=== PATIENT | female | born 1970 | race Caucasian/White ===

== ENCOUNTER 2017-06-24 18:02 | Emergency (ER) | payer MEDICARE ==
[~2017-06-24] VITALS: Ht 170.2 cm; Wt 59.0 kg
[~2017-06-24 18:02] MED LIST: HYDR-317 PO; IBUP-1687 PO; OXYB15TA14 PO; PRED20TA6 PO; SPIR1TAB28 PO; TRAM-420 PO
[2017-06-24 18:07] VITALS: BP 134/85
--- NOTE | 2017-06-24 18:24 | ER Report ---
History and Physical Time Seen By MD: 18:20 Hx. of Stated Complaint: CONSTIPATED FOR 8 DAYS - SENT FROM URGENT CARE. HPI/ROS Per nursing report: Alanis T7-T8 paraplegic since age 17 Rx at [facility] at that time, partial hysterectomy, on bowel regimen, last BM 8d ago, now with some discomfort and seen at xray done today and copious stool seen; xray on disc. No N/V CHIEF COMPLAINT: Constipation, HISTORY OF PRESENT ILLNESS: Constipation, 8 days worsening 2 days ago with mild diffuse abdominal discomfort no vomiting. No fevers no chills completing antibiotics for urinary tract infection and has 1 more day of Bactrim to go last bowel movement 8 days ago was hard stools no suspected fecal impaction normally uses digital stimulation to defecate. No bloody stools. No other concerns or complaints today. REVIEW OF SYSTEMS: Respiratory: No cough, no dyspnea. Cardiovascular: No chest pain, no palpitations. Gastrointestinal: Otherwise negative Musculoskeletal: No back pain. 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 No acute distress Eyes: Pupils equal and round no pallor or injection. ENT, Mouth: Mucous membranes are moist. Respiratory: There are no retractions, lungs are clear to auscultation. Cardiovascular: Regular rate and rhythm. No murmurs gallops or rubs Gastrointestinal: Abdomen is soft and non tender, no masses, bowel sounds normal. Neurological: No acute changes otherwise Normal gross exam Baseline paraplegia Skin: Warm and dry, no rashes. Musculoskeletal: Neck is supple non tender. Extremities are nontender, nonswollen and have full range of motion. No edema DIFFERENTIAL DIAGNOSIS: After history and physical exam differential diagnosis was considered for constipation, obstipation, small bowel obstruction, intussusception, volvulus, doubt aortic dissection or AAA rupture. Medical Decision Making Data Points Result Diagram: 06/24/17190206/24/171902 Laboratory Hematology Test 06/24/17 19:03 06/24/17 19:24 Red Blood Count 4.50 M/uL (4.17-5.56) Mean Corpuscular Volume 90.7 fL (80.0-96.0) Mean Corpuscular Hemoglobin 31.8 pg (26.0-33.0) Mean Corpuscular Hemoglobin Concent 35.0 g/dL (32.0-36.0) Red Cell Distribution Width 12.8 % (11.5-14.5) Mean Platelet Volume 6.7 fL (7.2-11.1) Neutrophils (%) (Auto) 63.1 % (39.4-72.5) Lymphocytes (%) (Auto) 24.8 % (17.6-49.6) Monocytes (%) (Auto) 9.7 % (4.1-12.4) Eosinophils (%) (Auto) 1.7 % (0.4-6.7) Basophils (%) (Auto) 0.7 % (0.3-1.4) Nucleated RBC Relative Count (auto) 0.0 /100WBC Neutrophils # (Auto) 5.0 K/uL (2.0-7.4) Lymphocytes # (Auto) 2.0 K/uL (1.3-3.6) Monocytes # (Auto) 0.8 K/uL (0.3-1.0) Eosinophils # (Auto) 0.1 K/uL (0.0-0.5) Basophils # (Auto) 0.1 K/uL (0.0-0.1) Nucleated RBC Absolute Count (auto) 0.00 K/uL Sodium Level 131 mmol/L (137-145) Potassium Level 3.5 mmol/L (3.5-5.0) Chloride Level 92 mmol/L (98-107) Carbon Dioxide Level 26 mmol/L (22-31) Blood Urea Nitrogen 18 mg/dl (7-18) Creatinine 0.60 mg/dl (0.52-1.04) Glomerular Filtration Rate Calc > 60.0 Random Glucose 82 mg/dl (75-110) Calcium Level 9.7 mg/dl (8.4-10.2) Total Bilirubin 0.6 mg/dl (0.2-1.3) Aspartate Amino Transf (AST/SGOT) 24 U/L (0-35) Alanine Aminotransferase (ALT/SGPT) 32 U/L (0-56) Alkaline Phosphatase 55 U/L (0-126) Total Protein 7.4 gm/dl (6.3-8.2) Albumin 4.2 g/dl (3.5-5.0) Lipase 58 U/L (23-300) Urine Color Yellow Urine Clarity Clear Urine pH 6.0 pH (4.8-9.5) Urine Specific [place] 1.012 Urine Protein Negative mg/dL (NEGATIVE) Urine Glucose (UA) Negative mg/dL (NEGATIVE) Urine Ketones Negative mg/dL (NEGATIVE) Urine Blood Negative (NEGATIVE) Urine Nitrite Negative (NEGATIVE) Urine Bilirubin Negative (NEGATIVE) Urine Urobilinogen Negative mg/dL (0.2-1.9) Urine Leukocyte Esterase Negative (NEGATIVE) Urine RBC <1 /HPF (0-2/HPF) Urine WBC <1 /HPF (0-5/HPF) Urine Squamous Epithelial Cells Many /LPF (</=FEW) Urine Bacteria Few /HPF (NONE-FEW) Urine Mucus None /HPF (NONE-FEW) Chemistry Test 06/24/17 19:03 06/24/17 19:24 White Blood Count 8.0 k/uL (4.5-11.0) Red Blood Count 4.50 M/uL (4.17-5.56) Hemoglobin 14.3 g/dL (12.0-16.0) Hematocrit 40.8 % (34.0-47.0) Mean Corpuscular Volume 90.7 fL (80.0-96.0) Mean Corpuscular Hemoglobin 31.8 pg (26.0-33.0) Mean Corpuscular Hemoglobin Concent 35.0 g/dL (32.0-36.0) Red Cell Distribution Width 12.8 % (11.5-14.5) Platelet Count 310 K/uL (150-450) Mean Platelet Volume 6.7 fL (7.2-11.1) Neutrophils (%) (Auto) 63.1 % (39.4-72.5) Lymphocytes (%) (Auto) 24.8 % (17.6-49.6) Monocytes (%) (Auto) 9.7 % (4.1-12.4) Eosinophils (%) (Auto) 1.7 % (0.4-6.7) Basophils (%) (Auto) 0.7 % (0.3-1.4) Nucleated RBC Relative Count (auto) 0.0 /100WBC Neutrophils # (Auto) 5.0 K/uL (2.0-7.4) Lymphocytes # (Auto) 2.0 K/uL (1.3-3.6) Monocytes # (Auto) 0.8 K/uL (0.3-1.0) Eosinophils # (Auto) 0.1 K/uL (0.0-0.5) Basophils # (Auto) 0.1 K/uL (0.0-0.1) Nucleated RBC Absolute Count (auto) 0.00 K/uL Glomerular Filtration Rate Calc > 60.0 Calcium Level 9.7 mg/dl (8.4-10.2) Total Bilirubin 0.6 mg/dl (0.2-1.3) Aspartate Amino Transf (AST/SGOT) 24 U/L (0-35) Alanine Aminotransferase (ALT/SGPT) 32 U/L (0-56) Alkaline Phosphatase 55 U/L (0-126) Total Protein 7.4 gm/dl (6.3-8.2) Albumin 4.2 g/dl (3.5-5.0) Lipase 58 U/L (23-300) Urine Color Yellow Urine Clarity Clear Urine pH 6.0 pH (4.8-9.5) Urine Specific [place] 1.012 Urine Protein Negative mg/dL (NEGATIVE) Urine Glucose (UA) Negative mg/dL (NEGATIVE) Urine Ketones Negative mg/dL (NEGATIVE) Urine Blood Negative (NEGATIVE) Urine Nitrite Negative (NEGATIVE) Urine Bilirubin Negative (NEGATIVE) Urine Urobilinogen Negative mg/dL (0.2-1.9) Urine Leukocyte Esterase Negative (NEGATIVE) Urine RBC <1 /HPF (0-2/HPF) Urine WBC <1 /HPF (0-5/HPF) Urine Squamous Epithelial Cells Many /LPF (</=FEW) Urine Bacteria Few /HPF (NONE-FEW) Urine Mucus None /HPF (NONE-FEW) Urinalysis Test 06/24/17 19:24 Urine Color Yellow Urine Clarity Clear Urine pH 6.0 pH (4.8-9.5) Urine Specific [place] 1.012 Urine Protein Negative mg/dL (NEGATIVE) Urine Glucose (UA) Negative mg/dL (NEGATIVE) Urine Ketones Negative mg/dL (NEGATIVE) Urine Blood Negative (NEGATIVE) Urine Nitrite Negative (NEGATIVE) Urine Bilirubin Negative (NEGATIVE) Urine Urobilinogen Negative mg/dL (0.2-1.9) Urine Leukocyte Esterase Negative (NEGATIVE) Urine RBC <1 /HPF (0-2/HPF) Urine WBC <1 /HPF (0-5/HPF) Urine Squamous Epithelial Cells Many /LPF (</=FEW) Urine Bacteria Few /HPF (NONE-FEW) Urine Mucus None /HPF (NONE-FEW) ED Course/Re-evaluation ED Course Plan of care agreed upon 06/24/2017 6:34:03 pm will review the KUB abdominal films prior to further radiological survey. Patient denies acute or severe pain. 06/24/2017 6:56:10 pm I reviewed the images of the KUB shows large dilated loops of small bowel with air-fluid levels. It does not accurately show lower abdomen or pelvis. Risks benefits of advanced imaging and lab work was discussed with the patient who is in agreement with plan for further workup. She reports she is terrified of IVs. 06/24/2017 10:00:34 pm enema complete 500 mL and no bowel movement thus far. Will attempt magnesium citrate orally. 06/24/2017 10:43:40 pm stool in rectal vault was removed by nursing staff patient is feeling better and ready for discharge at this time. Re-evaluation Laboratory work was reviewed and discussed with the patient Decision to Disposition Date: Jun 24, 2017 Decision to Disposition Time: 22:43 Depart Departure Latest Vital Signs Vital Signs Date Time Temp Pulse Resp B/P (MAP) Pulse Ox O2 Delivery O2 Flow Rate FiO2 06/24/17 18:07 98.4 111 16 134/85 96 Room Air Impression: Primary Impression: Constipation Condition: Improved Disposition: HOME OR SELF-CARE Referrals: TRACI RIDLEY MD 2 Days as needed New Scripts Polyethylene Glycol 3350 (MIRALAX) 17 Gm Powd.pack 17 GM PO 1-2XD Y for CONSTIPATION for 7 Days, #14 PKT Prov: BENJAMIN JOVEL MD 06/24/17 Patient Instructions: Constipation (ED) BENJAMIN JOVEL MD Jun 24, 2017 18:24
[2017-06-24] MEDS ORDERED: NS(*) 0.9% 1000 ML BAG 1,000 ML IV ONE (18:51)
[2017-06-24] MEDS ORDERED: MORPHINE 4 MG/ML SYR IVP ONE (18:55)
[2017-06-24] MEDS ORDERED: ONDANSETRON 4 MG/2 ML VIAL IVP ONE (18:55)
[2017-06-24] MEDS ORDERED: IOPAMIDOL 76% 75 ML INFUS BTL 0 ML ONE (19:01)
[2017-06-24] MEDS ORDERED: NS 0.9% 20 ML SDV 40 ML ONE (19:01)
[2017-06-24 19:23] LABS: PLATELET COUNT, AUTOMATED 310 K/uL (150-450)
--- NOTE | 2017-06-24 20:20 | RADIOLOGY IMAGING REPORT ---
[place] [facility] [place] NAME: Carine Casarez : 1970 MR: [id number] V: [id number] EXAM DATE: ORDERING PHYSICIAN: BENJAMIN JOVEL TECHNOLOGIST: [place] [facility] [place] [place] : 1970 Visit/Account:[id number] Date of Sevice: 06/24/2017 ABDOMEN/PELVIS W/O CONTRAST HISTORY: Abdominal pain. Constipation. TECHNIQUE: Axial images were obtained through the abdomen and pelvis without intravenous contrast . One of the following dose optimization techniques was utilized in the performance of this exam: autom ated exposure control; adjustment of the mA and/or kv according to patient size; or use of iterative reconstruction technique. Specific details can be referenced in the facility's radiology CT exam oper ational policy. CONTRAST: None COMPARISON: None. FINDINGS: Visualized lung bases: Left basilar scar. Hepatobiliary: Negative. Spleen: Negative. Adrenals: Negative. Pancreas: Negative. Kidneys/ureters/bladder: Negative. Bowel/peritoneum/mesentery: Large amount of distal colonic stool. No bowel obstruction, free air or ascites. No acute inflammatory change surrounding the colon. Vessels: Negative. Lymph nodes: Negative. Pelvic genitourinary: Negative. Bones/body wall: Bilateral hip dysplasia with moderate-severe degenerative changes. Other findings: None significant IMPRESSION: 1. Large amount of distal colonic stool without obstructive features or acute inflammatory change. 2. Bilateral hip dysplasia with moderate-severe degenerative changes. Report Dictated By: Kendell Benedict MD at 06/24/2017 7:56 PM Report E-Signed By: Kendell Benedict MD at 06/24/2017 8:17 PM WSN:[id number]
[2017-06-24] MEDS ORDERED: MAGNESIUM CITRATE 300 ML BTL PO ONE (22:05)
[2017-06-24] MEDS ORDERED: POLY17PO25 PO (22:46)
== END 2017-06-24 23:06 | disposition home or self-care (01) ==
LOC: ER 18:48
DX: K59.00 Constipation, unspecified (principal)
CPT/HCPCS: 74176; 81001; 83690; 85025; 99283; A9270; J7050; 82040; 82247; 82310; 82374; 82435; 82565; 82947; 84075; 84132; 84155; 84295; 84450; 84460; 84520; Q9967

== ENCOUNTER 2017-07-25 03:22 | Day surgery (SDC) | payer MEDICARE ==
[~2017-07-25] VITALS: Ht 170.2 cm; Wt 61.2 kg
[~2017-07-25 03:22] MED LIST changes: +NAPR1TAB10 PO; +POLY17PO25 PO
--- NOTE | 2017-07-25 06:27 | Post Operative Progress Note ---
Post Operative Progress Note Date: Jul 25, 2017 Time: 08:14 Surgeon: radha Anesthesia: dr aragon Pre-Op Diagnosis: constipation Post-Op Diagnosis: normal exam Procedure(s): colonoscopy TRACI RIDLEY MD Jul 25, 2017 06:27
--- NOTE | 2017-07-25 06:27 | Short(Outpt) Discharge Summary ---
Discharge Summary Reason for Hosp/Final Diag: (1) Constipation Status: Acute Hospital Course & Plan: normal colonoscopy Departure Discharge to: Home Discharge Instructions Home Meds Reported Medications Naproxen Na-Diphenhydramin HCl (Aleve Pm Caplet) 1 Each Tablet, 1 TAB PO DAILY 07/12/17 Tramadol Hcl (TRAMADOL HCL) 50 Mg Tablet, 50-100 MG PO Q6H Y for PAIN, #20 TAB 10/05/15 Oxybutynin Chloride (OXYBUTYNIN CHLORIDE ER) 15 Mg Tab.er.24, 15 MG PO QDAY, TAB.SA 09/28/15 Spironolact/Hydrochlorothiazid (SPIRONOLACTONE-HCTZ 25-25 TAB) 1 Each Tablet, 1 EACH PO DAILY, TAB 09/28/15 Diet: High Fiber Activity: As Tolerated TRACI RIDLEY MD Jul 25, 2017 06:27
[2017-07-25 06:38] VITALS: BP 105/80
[2017-07-25] MEDS ORDERED: NORMOSOL R SOLN(*) 1000 ML BAG 1,000 ML IV PRN (06:45)
[2017-07-25] MEDS ORDERED: MIDAZOLAM 2 MG/2 ML VIAL IVP ONE (06:45)
[2017-07-25] MEDS ORDERED: LIDOCAINE/SOD BICARB 8.4% SYR ID ONE (06:45)
[2017-07-25] MEDS ORDERED: PROPOFOL EMUL(*) 10MG/ML 20 ML 20 ML ONE ×2 (07:25→07:49)
[2017-07-25 08:14] VITALS: BP 98/64
[2017-07-25 08:30] VITALS: BP 104/62
[2017-07-25 08:45] VITALS: BP 101/78
[2017-07-25 09:00] VITALS: BP 102/72
--- NOTE | 2017-07-25 14:16 | OPERATIVE REPORT 1 ---
EVENT DATE: July 25, 2017 SURGEON: Timo Alcantara MD ANESTHESIOLOGIST: Jeremy Bahena MD ANESTHESIA: Sedation. PREOPERATIVE DIAGNOSIS Constipation. POSTOPERATIVE DIAGNOSIS Normal-appearing colonoscopic examination. PROCEDURE PERFORMED Colonoscopy. DESCRIPTION OF PROCEDURE The patient was placed in the left lateral decubitus position and given intravenous sedation. The rectal exam was unremarkable. A flexible colonoscope was inserted and advanced to the hepatic flexure. At that point, we had difficulty getting the scope to advance. We had to place her in the supine position and use abdominal pressure because of the lax musculature in the abdomen, but with much persistence, we were able to get the scope to advance to the cecum. She had an excellent bowel prep. Ileocecal valve and base of the cecum were identified. The scope was slowly withdrawn. Care was taken to look behind the haustral folds. No abnormalities were noted in the cecum, right colon, transverse, descending, or sigmoid colon. The rectum was normal. The scope was retroflexed. That appeared to be normal. She will need a repeat colonoscopy in 10 years. CHARLES
== END 2017-07-25 09:05 | disposition home or self-care (01) ==
LOC: OR 03:22
PROVIDERS: ATTEND Surgery
DX: K59.00 Constipation, unspecified (principal)
CPT/HCPCS: 00811; 45378; J2704

== ENCOUNTER 2017-10-10 01:00 | Day surgery (SDC) | payer MEDICARE ==
[~2017-10-10] VITALS: Ht 170.2 cm; Wt 61.2 kg
[~2017-10-10 01:00] MED LIST changes: +FLUT16SP19; +[UNRECOGNIZED DRUG - CODE] PO; +[UNRECOGNIZED DRUG - CODE] PO; +[UNRECOGNIZED DRUG - OTHER] PO; +[UNRECOGNIZED DRUG - OTHER] PO; +[UNRECOGNIZED DRUG - OTHER] PO
[2017-10-10] MEDS ORDERED: PROPOFOL EMUL(*) 10MG/ML 20 ML 40 ML ONE (10:11)
[2017-10-10 11:35] VITALS: BP 115/87
[2017-10-10] MEDS ORDERED: LIDOCAINE/SOD BICARB 8.4% SYR ID ONE (13:30)
[2017-10-10] MEDS ORDERED: NORMOSOL R SOLN(*) 1000 ML BAG 1,000 ML IV PRN (13:30)
[2017-10-10 13:51] VITALS: BP 99/60
[2017-10-10 14:00] VITALS: BP 96/60
[2017-10-10 14:30] VITALS: BP 115/80
[2017-10-10 14:45] VITALS: BP 110/71
[2017-10-10 15:01] VITALS: BP 117/77
== END 2017-10-10 15:18 | disposition home or self-care (01) ==
LOC: OR 01:00
PROVIDERS: ATTEND Internal Medicine Gastroenterology
DX: K20.9 Esophagitis, unspecified (principal); K44.9 Diaphragmatic hernia without obstruction or gangrene; K29.70 Gastritis, unspecified, without bleeding
CPT/HCPCS: 43239; 88305; 88313; 88344; J2704

== ENCOUNTER → 2017-12-12 | Outpatient (CLI) | payer MEDICARE | LOC: LAB 11:02 | PROVIDERS: ATTEND Urology | DX: N39.0 Urinary tract infection, site not specified (principal); B96.20 Unspecified Escherichia coli [E. coli] as the cause of diseases classified elsewhere | CPT/HCPCS: 81001; 87077; 87088; 87186 ==

== ENCOUNTER → 2018-01-14 | Outpatient (CLI) | payer MEDICARE | LOC: LAB 12:07 | PROVIDERS: ATTEND Urology | DX: N39.0 Urinary tract infection, site not specified (principal); B96.89 Other specified bacterial agents as the cause of diseases classified elsewhere | CPT/HCPCS: 81001; 87077; 87088; 87186 ==

== ENCOUNTER → 2018-01-27 | Outpatient (CLI) | payer MEDICARE | LOC: LAB 15:23 | PROVIDERS: ATTEND Urology | DX: N39.0 Urinary tract infection, site not specified (principal); Z87.442 Personal history of urinary calculi | CPT/HCPCS: 36415; 82565 ==

== ENCOUNTER → 2018-01-28 | Outpatient (CLI) | payer MEDICARE ==
--- NOTE | 2018-01-28 08:37 | RADIOLOGY IMAGING REPORT ---
FACILITY: [facility] [place] PATIENT NAME: Carine Casarez : 1970 MR: [id number] V: [id number] EXAM DATE: ORDERING PHYSICIAN: CA SILVER TECHNOLOGIST: Location: [facility] Patient: Carine Casarez : 1970 Visit/Account:[id number] Date of Sevice: 01/28/2018 KIDNEYS EXAMINATION: Renal ultrasound. History: Recurrent UTIs, history of bladder stones COMPARISON STUDIES: CT abdomen and pelvis June 24, 2017 FINDINGS: Kidneys: Right kidney- 10.4 x 5.9 x 5.9 cm Left kidney- 11.4 x 6.3 x 5 cm Uniform and symmetric blood flow in each kidney by Doppler ultrasound. Hydronephrosis: none Resistive index on the right 0.64 and on the left 0.59 Bladder: Prevoid volume 220 mL. Post void residual was not obtained due to patient's self-catheteriz ation. There are bilateral ureteral jets Abdominal aorta and IVC: Aorta and IVC are patent by Doppler ultrasound. IMPRESSION: Unremarkable sonographic appearance to the kidneys Urinary bladder prevoid volume 220 mL. Post void residual not obtained Report Dictated By: Judith Pascual MD at 01/28/2018 8:30 AM Report E-Signed By: Judith Pascual MD at 01/28/2018 8:34 AM WSN:[email or web address]
== END ==
LOC: US 02:03
PROVIDERS: ATTEND Urology
DX: N39.0 Urinary tract infection, site not specified (principal); Z87.442 Personal history of urinary calculi
CPT/HCPCS: 76705